=== PATIENT | female | born 1960 | race Caucasian/White ===

== ENCOUNTER → 2022-05-24 | Day surgery (SDC) | payer MEDICARE, MEDICAID ==
[~2022-05-24] VITALS: Ht 152.4 cm; Wt 69.4 kg
[~2022-05-24] MED LIST: AMLO10TA80 PO; AMLO5TAB88 PO; ATOR10TA69 PO; BACITRACIN 15GM TUBE TOP ONE; BUPIVACAINE HCL/PF 0.5% (5MG/ML) 10ML ONE; CALC667T6 PO; COR6 MT; DEXAMETHASONE 4MG/ML 1ML VIAL ONE; FENTANYL CITRATE/PF 50MCG/ML 2ML VIAL IV PRN; FENTANYL CITRATE/PF 50MCG/ML 2ML VIAL ONE; GLYCOPYRROLATE 0.2 MG/ML 2ML VIAL ONE; HEPARIN SODIUM 1,000 UNIT/1ML VIAL IV ONE; LEVO50TA8 PO; LIDOCAINE HCL 1% 50ML VIAL (10MG/ML) ONE; METO-539 PO; METOCLOPRAMIDE HCL 10MG/2ML VIAL ONE; MIDAZOLAM HCL 2 MG/2 ML VIAL ONE; ONDANSETRON HCL 4MG/2ML INJ IV PRN; ONDANSETRON HCL 4MG/2ML INJ ONE; POLYMYXIN B SULFATE 500000 UNITS/VIAL ONE; PROPOFOL 200MG/20ML VIAL IV ONE; SODIUM CHLORIDE 0.9% 500 ML IV ONE; THROMBIN (BOVINE) 5000 UNITS/VIAL TOP ONE
[2022-05-24 10:40] LABS: BASOPHILS % 0.9 % (0.0-2.0); EOSINOPHILS % 3.3 % (0.0-5.0); HEMATOCRIT. 33.6 % (36.0-48.0); HEMOGLOBIN. 11.6 g/dL (12.0-16.0); LYMPHOCYTES % 24.5 % (20.0-50.0); MEAN CORPUSCULAR HEMOGLOBIN 33.4 pg (28.0-32.0); MEAN CORPUSCULAR VOLUME 96.5 fL (81.0-99.0); MEAN PLATELET VOLUME 7.6 fl (7.4-10.4); NEUTROPHILS % 57.3 % (40.0-76.0); PLATELET 149 x1000/uL (130-400); RED BLOOD CELL COUNT 3.48 mill/uL (4.2-5.4); RED CELL DISTRIBUTION WIDTH 14.7 % (11.6-14.6)
[2022-05-24 10:52] LABS: PARTIAL THROMBOPLASTIN TIME 28.1 sec (23.4-31.0); PROTHROMBIN TIME 10.7 sec (9.6-11.0)
[2022-05-24 14:36] VITALS: BP 137/75
== END | disposition home or self-care (01) ==
LOC: OR 09:54
PROVIDERS: ATTEND Surgery Vascular Surgery
DX: N18.6 End stage renal disease (principal); Z99.2 Dependence on renal dialysis; Z79.899 Other long term (current) drug therapy; Z98.890 Other specified postprocedural states; Z20.822 Contact with and (suspected) exposure to COVID-19
CPT/HCPCS: 36415; 36830; 80048; 85025; 85610; 85730; 87426; 93005; C1768; C9803; J1100; J1644; J2250; J2405; J2704; J2765; J3010; J3490

== ENCOUNTER 2024-07-20 14:34 | Inpatient (IN) | payer MEDICARE, MEDICAID ==
[~2024-07-20] VITALS: Ht 154.9 cm; Wt 2063.5 kg
[~2024-07-20 14:34] MED LIST changes: -AMLO5TAB88 PO; +APIX5TAB PO; -ATOR10TA69 PO; -BACITRACIN 15GM TUBE TOP ONE; -BUPIVACAINE HCL/PF 0.5% (5MG/ML) 10ML ONE; +CLOP-31 PO; -COR6 MT; -DEXAMETHASONE 4MG/ML 1ML VIAL ONE; -FENTANYL CITRATE/PF 50MCG/ML 2ML VIAL IV PRN; -FENTANYL CITRATE/PF 50MCG/ML 2ML VIAL ONE; +FOLI0.8T23 PO; -GLYCOPYRROLATE 0.2 MG/ML 2ML VIAL ONE; -HEPARIN SODIUM 1,000 UNIT/1ML VIAL IV ONE; +HYDR25TA78 PO; -LEVO50TA8 PO; +LEVO75TA7 PO; -LIDOCAINE HCL 1% 50ML VIAL (10MG/ML) ONE; +LIP40 PO; -METO-539 PO; -METOCLOPRAMIDE HCL 10MG/2ML VIAL ONE; -MIDAZOLAM HCL 2 MG/2 ML VIAL ONE; -ONDANSETRON HCL 4MG/2ML INJ IV PRN; -ONDANSETRON HCL 4MG/2ML INJ ONE; -POLYMYXIN B SULFATE 500000 UNITS/VIAL ONE; -PROPOFOL 200MG/20ML VIAL IV ONE; -SODIUM CHLORIDE 0.9% 500 ML IV ONE; -THROMBIN (BOVINE) 5000 UNITS/VIAL TOP ONE; +VANC250C5 MT
[2024-07-20 15:55] LABS: HEMATOCRIT. 33.3 % (36.0-48.0); HEMOGLOBIN. 11.3 g/dL (12.0-16.0); MEAN CORPUSCULAR HEMOGLOBIN 32.6 pg (28.0-32.0); MEAN CORPUSCULAR HGB CONC 33.9 g/dL (31.0-37.0); MEAN CORPUSCULAR VOLUME 95.9 fL (81.0-99.0); MEAN PLATELET VOLUME 8.2 fl (7.4-10.4); PLATELET 148 x1000/uL (130-400); RED BLOOD CELL COUNT 3.47 mill/uL (4.2-5.4); WHITE BLOOD COUNT 3.8 x1000/uL (4.5-11.0)
[2024-07-20 15:57] LABS: DIFFERENTIAL COMMENT 1
[2024-07-20 16:25] LABS: CHLORIDE 96 mEq/L (98-107); POTASSIUM 4.4 mEq/L (3.5-5.1); SODIUM 132 mEq/L (136-145)
[2024-07-20 16:28] LABS: CARBON DIOXIDE 29 mEq/L (21-32)
[2024-07-20 16:29] LABS: CALCIUM 9.1 mg/dL (8.7-10.4)
[2024-07-20 16:34] LABS: GLUCOSE 108 mg/dL (70-105); UREA NITROGEN BLOOD 21 mg/dL (9-23)
[2024-07-20 16:35] LABS: ALANINE AMINOTRANSFERASE 18 IU/L (10-49); ALBUMIN 3.4 g/dL (3.2-4.8); ASPARTATE AMINOTRANSFERASE 36 IU/L (<34)
[2024-07-20 16:36] LABS: BILIRUBIN DIRECT 0.2 mg/dL (<=3.0); BILIRUBIN TOTAL 0.6 mg/dL (0.1-1.0); PROTEIN TOTAL 8.4 g/dL (6.0-8.3)
[2024-07-20 16:41] LABS: TROPONIN I HIGH SENSITIVITY 12 ng/L (3.0-34)
[2024-07-20 16:42] LABS: CREATININE 4.1 mg/dL (0.6-1.0)
[2024-07-20 16:46] LABS: PLATELET ESTIMATE NORMAL
[2024-07-20] MEDS: CEFTRIAXONE 1GM/50ML 50 ML IV ONE (20:52)
[2024-07-21] VITALS (7 sets, daily range): BP systolic 152–173; BP diastolic 67–87; PULSE 68–80; RESP 18–20; TEMP 36.50292–36.9184; O2SAT 96–100
[2024-07-21] MEDS ORDERED: DEXTROSE 50% WATER 50ML SYRINGE IV PRN ×3 (00:30→19:45)
[2024-07-21] MEDS: CLONIDINE 0.1MG TABLET PO PRN (00:50)
[2024-07-21] MEDS: INSULIN LISPRO 100 UNITS/ML SUBCUT SCH ×3 (06:35→20:27)
[2024-07-21] MEDS: BLOOD SUGAR DIAGNOSTIC STRIP TEST SCH ×2 (06:35→20:28)
[2024-07-21] MEDS: MORPHINE SULFATE 2 MG/ML INJ (NOT FOR IM USE) IV PRN ×2 (08:53→14:20)
[2024-07-21] MEDS ORDERED: ENOXAPARIN 30MG/0.3ML SYR SUBCUT SCH (09:00)
[2024-07-21] MEDS: CLOPIDOGREL 75MG TABLET PO SCH (09:15)
[2024-07-21] MEDS ORDERED: NALOXONE HCL 0.4MG/ML VIAL IV PRN (09:30)
[2024-07-21] MEDS: APIXABAN 2.5 MG TABLET PO SCH (10:00)
[2024-07-21] MEDS ORDERED: DOCUSATE SODIUM 100MG CAPSULE PO PRN ×2 (10:30→17:15)
[2024-07-21] MEDS ORDERED: GUAIFENESIN 200MG/10ML SUGAR FREE UDC PO PRN (10:30)
[2024-07-21] MEDS ORDERED: IPRATROPIUM/ALBUTEROL 0.5-3(2.5)MG/3ML NEB HHN PRN (10:30)
[2024-07-21] MEDS ORDERED: ACETAMINOPHEN 325MG TABLET PO PRN ×2 (10:30→17:15)
[2024-07-21 10:55] LABS: PARTIAL THROMBOPLASTIN TIME 32.8 sec (23.4-31.0); PROTHROMBIN TIME 10.9 sec (9.6-11.0)
[2024-07-21 11:12] LABS: CARBON DIOXIDE 30 mEq/L (21-32); CHLORIDE 102 mEq/L (98-107); SODIUM 135 mEq/L (136-145)
[2024-07-21 11:13] LABS: CALCIUM 9.2 mg/dL (8.7-10.4)
[2024-07-21 11:28] LABS: HEMATOCRIT. 35.6 % (36.0-48.0); HEMOGLOBIN. 11.6 g/dL (12.0-16.0); MEAN CORPUSCULAR HEMOGLOBIN 31.2 pg (28.0-32.0); MEAN CORPUSCULAR HGB CONC 32.6 g/dL (31.0-37.0); MEAN CORPUSCULAR VOLUME 95.7 fL (81.0-99.0); MEAN PLATELET VOLUME 8.7 fl (7.4-10.4); PLATELET 182 x1000/uL (130-400); RED BLOOD CELL COUNT 3.72 mill/uL (4.2-5.4); WHITE BLOOD COUNT 4.7 x1000/uL (4.5-11.0)
[2024-07-21 11:54] LABS: DIFFERENTIAL COMMENT 1
[2024-07-21] MEDS ORDERED: BLOOD SUGAR DIAGNOSTIC STRIP TEST SCH (12:10)
[2024-07-21 12:32] LABS: CLARITY URINE CLOUDY (CLEAR); COLOR URINE YELLOW (YELLOW); GLUCOSE URINE TRACE (NEGATIVE); KETONES URINE NEGATIVE (NEGATIVE); LEUKOCYTE ESTERASE URINE TRACE (NEGATIVE); NITRITE URINE NEGATIVE (NEGATIVE); OCCULT BLOOD URINE NEGATIVE (NEGATIVE); PH URINE >=9.0 (4.5-8.0); PROTEIN URINE 3+ (NEGATIVE); SPECIFIC GRAVITY URINE 1.009 (1.005-1.030); UROBILINOGEN URINE 0.2 E.U./dL (0.2-1.0)
[2024-07-21] MEDS: AMLODIPINE 10MG TABLET PO SCH (12:33)
[2024-07-21] MEDS: LEVOTHYROXINE SODIUM 75MCG TABLET PO SCH (12:37)
[2024-07-21 12:54] LABS: SQUAMOUS EPITHELIAL CELL URINE 3+ /lpf (RARE/1+)
[2024-07-21 13:05] LABS: BACTERIA URINE 4+; YEAST URINE NONE SEEN
[2024-07-21 13:06] LABS: RBC URINE 0-2 /hpf (0-2); WBC URINE 15-25 /hpf (0-2)
[2024-07-21 13:21] LABS: ALBUMIN 3.4 g/dL (3.2-4.8); CHOLESTEROL 154 mg/dL (<200); GLUCOSE 85 mg/dL (70-105); HDL CHOLESTEROL 39 mg/dL (>65); LDL CHOLESTEROL 86 mg/dL (5-100); PHOSPHORUS 3.8 mg/dL (2.5-4.9); T4 FREE 1.08 ng/dL (0.89-1.76); THYROID STIMULATING HORMONE 109.77 uIU/mL (0.55-4.78); TRIGLYCERIDE 116 mg/dL (0-150); UREA NITROGEN BLOOD 30 mg/dL (9-23)
[2024-07-21 13:22] LABS: CREATININE 5.2 mg/dL (0.6-1.0)
[2024-07-21] MEDS: HYDRALAZINE HCL 100MG TABLET PO SCH (14:38)
[2024-07-21 15:24] LABS: CREATINE KINASE 41 IU/L (34-145); TROPONIN I HIGH SENSITIVITY 10 ng/L (3.0-34)
[2024-07-21] MEDS ORDERED: CLONIDINE 0.1MG TABLET PO PRN (17:15)
[2024-07-21] MEDS ORDERED: ENOXAPARIN 40MG/0.4ML SYR SUBCUT SCH (17:15)
[2024-07-21] MEDS ORDERED: ONDANSETRON HCL 4MG/2ML INJ IV PRN (17:15)
[2024-07-21] MEDS ORDERED: ZOLPIDEM TARTRATE 5MG TABLET PO PRN (17:15)
[2024-07-21] MEDS: CEFTRIAXONE 1GM/50ML 50 ML IV SCH (20:24)
[2024-07-21] MEDS: METOPROLOL TARTRATE 25MG TABLET PO SCH (21:00)
[2024-07-21 23:29] LABS: ANISOCYTOSIS 1+; PLATELET ESTIMATE NORMAL
[2024-07-22] VITALS (16 sets, daily range): BP systolic 121–170; BP diastolic 51–87; PULSE 59–83; RESP 15–20; TEMP 36.114–36.6696; O2SAT 97–99
[2024-07-22 00:45] LABS: CREATINE KINASE 40 IU/L (34-145)
[2024-07-22 00:46] LABS: TROPONIN I HIGH SENSITIVITY 10 ng/L (3.0-34)
[2024-07-22 06:51] LABS: CARBON DIOXIDE 29 mEq/L (21-32); CHLORIDE 99 mEq/L (98-107); POTASSIUM 5.1 mEq/L (3.5-5.1)
[2024-07-22 06:52] LABS: SODIUM 134 mEq/L (136-145)
[2024-07-22 06:53] LABS: CALCIUM 9.2 mg/dL (8.7-10.4); FERRITIN 490 ng/mL (10-291); FOLIC ACID (FOLATE) SERUM > 20.00 ng/mL (>5.38)
[2024-07-22 06:54] LABS: VITAMIN B12 SERUM 1859 pg/mL (211-911)
[2024-07-22 06:56] LABS: HEMATOCRIT. 31.9 % (36.0-48.0); HEMOGLOBIN. 10.3 g/dL (12.0-16.0); MEAN CORPUSCULAR HGB CONC 32.3 g/dL (31.0-37.0); MEAN CORPUSCULAR VOLUME 96.1 fL (81.0-99.0); MEAN PLATELET VOLUME 9.3 fl (7.4-10.4); PLATELET 157 x1000/uL (130-400); RED BLOOD CELL COUNT 3.32 mill/uL (4.2-5.4); WHITE BLOOD COUNT 4.5 x1000/uL (4.5-11.0)
[2024-07-22 06:57] LABS: GLUCOSE 71 mg/dL (70-105); IRON 40 ug/dL (50-170)
[2024-07-22 06:58] LABS: UREA NITROGEN BLOOD 36 mg/dL (9-23)
[2024-07-22 07:00] LABS: GAMMA GLUTAMYL TRANSPEPTIDASE 151 IU/L (<38); TOTAL IRON BINDING CAPACITY 172 ug/dl (250-425)
[2024-07-22 07:01] LABS: DIFFERENTIAL COMMENT 1
[2024-07-22] MEDS ORDERED: SODIUM BICARBONATE 4% 2.4MEQ/5ML VIAL IV ONE (07:52)
[2024-07-22] MEDS ORDERED: LIDOCAINE HCL 1% 10 MG/ML 10ML VIAL ONE (07:52)
[2024-07-22] MEDS: ACETAMINOPHEN 325MG TABLET PO PRN (09:58)
[2024-07-22 11:42] LABS: PROTEIN BODY FLUID 4.6 gm/dL
[2024-07-22 13:17] LABS: BODY FLUID MONOCYTES 7 %; BODY FLUID RBC 83 /cu mm (0-2000); BODY FLUID WBC 175 /cu mm (0-200)
[2024-07-22 15:27] LABS: HEPATITIS B SURFACE ANTIGEN NEGATIVE (Negative)
[2024-07-22 15:47] LABS: HEPATITIS A AB IGM NEGATIVE (Negative)
[2024-07-22 15:48] LABS: HEPATITIS B CORE AB IGM NEGATIVE (Negative); HEPATITIS C AB NON REACTIVE (Neg) (Negative)
[2024-07-22 16:57] LABS: PLATELET ESTIMATE NORMAL
[2024-07-23] VITALS: BP 135/67; PULSE 76; RESP 19; TEMP 36.22512; O2SAT 99
[2024-07-23 04:00] VITALS: BP 146/56; PULSE 78; RESP 20; TEMP 36.44736; O2SAT 98
[2024-07-23 07:24] LABS: BASOPHILS % 1.1 % (0.0-2.0); EOSINOPHILS % 2.5 % (0.0-5.0); HEMATOCRIT. 35.1 % (36.0-48.0); HEMOGLOBIN. 11.2 g/dL (12.0-16.0); LYMPHOCYTES % 22.4 % (20.0-50.0); MEAN CORPUSCULAR HEMOGLOBIN 30.6 pg (28.0-32.0); MEAN CORPUSCULAR HGB CONC 31.8 g/dL (31.0-37.0); MEAN CORPUSCULAR VOLUME 96.2 fL (81.0-99.0); MEAN PLATELET VOLUME 9.3 fl (7.4-10.4); MONOCYTES % 13.5 % (2.0-8.0); NEUTROPHILS % 60.5 % (40.0-76.0); PLATELET 174 x1000/uL (130-400); RED BLOOD CELL COUNT 3.65 mill/uL (4.2-5.4); RED CELL DISTRIBUTION WIDTH 17.9 % (11.6-14.6); WHITE BLOOD COUNT 5.4 x1000/uL (4.5-11.0)
[2024-07-23 07:33] LABS: CALCIUM 8.8 mg/dL (8.7-10.4); POTASSIUM 4.9 mEq/L (3.5-5.1)
[2024-07-23 07:48] LABS: CREATININE 5.7 mg/dL (0.6-1.0)
[2024-07-23 08:00] VITALS: BP 129/54; PULSE 82; RESP 17; TEMP 36.50292; O2SAT 96
[2024-07-23 12:00] VITALS: BP 139/60; PULSE 73; RESP 18; TEMP 36.50292; O2SAT 100
[2024-07-23 15:01] VITALS: BP 139/60; PULSE 73; TEMP 97.7; O2SAT 100
[2024-07-23 16:00] VITALS: BP_SYST 134; BP_SYST 156; BP_DIAS 58; BP_DIAS 60; PULSE 74; PULSE 82; RESP 17; RESP 18; TEMP 36.3918; TEMP 36.50292; O2SAT 100; O2SAT 98
== END 2024-07-23 17:19 | disposition home or self-care (01) | DRG 871 ==
LOC: ER 14:34 → 8WST 21:33 → EDBEDREQSVC 21:52 → EDBEDREQ 21:52 → EDBEDREQTM 21:52
PROVIDERS: ADMIT Internal Medicine Nephrology; ATTEND Internal Medicine Nephrology
PROC: 0W9G3ZZ Drainage of Peritoneal Cavity, Percutaneous Approach (ICD-10-PCS; principal; 2024-07-22)
PROC: 5A1D70Z Performance of Urinary Filtration, Intermittent, Less than 6 Hours Per Day (ICD-10-PCS; 2024-07-22)
DX: A41.9 Sepsis, unspecified organism (principal); I50.33 Acute on chronic diastolic (congestive) heart failure; N18.6 End stage renal disease; I82.220 Acute embolism and thrombosis of inferior vena cava; I13.2 Hypertensive heart and chronic kidney disease with heart failure and with stage 5 chronic kidney disease, or end stage renal disease; N39.0 Urinary tract infection, site not specified; E87.1 Hypo-osmolality and hyponatremia; R18.8 Other ascites; E03.9 Hypothyroidism, unspecified; K57.30 Diverticulosis of large intestine without perforation or abscess without bleeding; D63.8 Anemia in other chronic diseases classified elsewhere; E11.22 Type 2 diabetes mellitus with diabetic chronic kidney disease; G89.29 Other chronic pain; I25.10 Atherosclerotic heart disease of native coronary artery without angina pectoris; I44.7 Left bundle-branch block, unspecified; K43.9 Ventral hernia without obstruction or gangrene; K74.60 Unspecified cirrhosis of liver; K80.20 Calculus of gallbladder without cholecystitis without obstruction; Z79.01 Long term (current) use of anticoagulants; Z79.02 Long term (current) use of antithrombotics/antiplatelets; Z86.718 Personal history of other venous thrombosis and embolism; Z95.5 Presence of coronary angioplasty implant and graft; Z99.2 Dependence on renal dialysis
CPT/HCPCS: 36415; 49083; 71045; 74176; 76700; 80048; 80061; 80076; 81003; 82040; 82105; 82550; 82607; 82728; 82746; 82962; 82977; 83036; 83516; 83540; 83550; 83605; 83615; 83735; 83880; 84100; 84145; 84439; 84443; 84484; 85025; 86256; 86705; 86709; 87340; 88108; 90935; 93005; 99285; J0696; J2270; J3490

== ENCOUNTER → 2024-10-13 | Outpatient (CLI) | payer MEDICARE, MEDICAID ==
[~2024-10-13] MED LIST changes: -APIX5TAB PO; +LEVO250T74 MT; +VANC250C19 MT; -VANC250C5 MT
== END | disposition home or self-care (01) ==
LOC: US 12:31
PROVIDERS: ATTEND Internal Medicine
DX: I82.532 Chronic embolism and thrombosis of left popliteal vein (principal)
CPT/HCPCS: 93971

== ENCOUNTER → 2024-11-05 | Outpatient (CLI) | payer MEDICARE, MEDICAID ==
[~2024-11-05] MED LIST changes: +REGADENOSON 0.4 MG/5 ML IV ONE
== END | disposition home or self-care (01) ==
LOC: CARD 07:31
PROVIDERS: ATTEND Internal Medicine
DX: R00.2 Palpitations (principal)
CPT/HCPCS: 78452; 93017; J2785; A9500

== ENCOUNTER → 2024-12-03 | Outpatient (CLI) | payer MEDICARE, MEDICAID ==
[~2024-12-03] MED LIST changes: -REGADENOSON 0.4 MG/5 ML IV ONE
== END | disposition home or self-care (01) ==
LOC: US 07:09
PROVIDERS: ATTEND Internal Medicine Nephrology
DX: S46.011A Strain of muscle(s) and tendon(s) of the rotator cuff of right shoulder, initial encounter (principal); S43.401A Unspecified sprain of right shoulder joint, initial encounter; M19.011 Primary osteoarthritis, right shoulder; K80.20 Calculus of gallbladder without cholecystitis without obstruction; N26.1 Atrophy of kidney (terminal); M94.211 Chondromalacia, right shoulder; M25.711 Osteophyte, right shoulder; M25.412 Effusion, left shoulder; M25.811 Other specified joint disorders, right shoulder; M65.911 Unspecified synovitis and tenosynovitis, right shoulder; J90 Pleural effusion, not elsewhere classified; K74.60 Unspecified cirrhosis of liver; X58.XXXA Exposure to other specified factors, initial encounter; Y93.89 Activity, other specified; Y92.89 Other specified places as the place of occurrence of the external cause; Y99.8 Other external cause status
CPT/HCPCS: 73221; 76700